=== PATIENT | female | born 1990 | race Caucasian/White ===

== ENCOUNTER 2024-07-31 22:58 | Emergency (ER) | payer OTHER ==
[2024-07-31 23:05] VITALS: RESP 18
[2024-08-01] MEDS: hydrOXYzine HCL 25 MG TAB PO STA (02:06)
--- NOTE | 2024-08-01 02:43 | ED ---
Anxiety HPI - General Chief Complaint: Anxiety Stated Complaint: Anxiety Time Seen by Provider: 08/01/24 00:32 Source: patient Mode of arrival: ambulatory - History of Present Illness Initial Comments: 34-year-old female presenting with chief complaint of anxiety. Patient has history of anxiety and believes that she is having a panic attack. This feels like previous panic attacks she has had. She states that she feels her heart beating very hard in her chest and is feeling overwhelmed. States that she is new to the area and is trying to find a primary care doctor and a psychiatrist. No abdominal pain, vomiting, fevers, dizziness, vision or hearing changes, numbness, tingling, weakness. - Related Data Home Medications: Previous Rx's Medication Instructions Recorded hydrOXYzine HCL [Atarax] 50 mg PO HS PRN #10 tablet 08/01/24 Allergies/Adverse Reactions: Allergies Allergy/AdvReac Type Severity Reaction Status Date / Time Penicillins Allergy Anaphylaxis Verified 07/31/24 23:06 shellfish derived [Shellfish] Allergy Anaphylaxis Verified 07/31/24 23:06 Sulfa (Sulfonamide Allergy Anaphylaxis Verified 07/31/24 23:06 Antibiotics) Review of Systems ROS Statement: Those systems with pertinent positive or pertinent negative responses have been documented in the HPI. ROS Other: All systems not noted in ROS Statement are negative. Past Medical History Past Medical History: No Reported History History of Any Multi-Drug Resistant Organisms: None Reported Past Surgical History: Orthopedic Surgery Additional Past Surgical History / Comment(s): carpal tunnel Past Psychological History: Anxiety, PTSD Smoking Status: Current every day smoker Past Alcohol Use History: Abuse Past Drug Use History: Marijuana General Exam General appearance: alert, anxious Head exam: Present: atraumatic, normocephalic, normal inspection Eye exam: Present: normal appearance, PERRL, EOMI Neck exam: Present: normal inspection. Absent: meningismus Respiratory exam: Present: normal lung sounds bilaterally. Absent: respiratory distress, wheezes, rales, rhonchi, stridor Cardiovascular Exam: Present: normal rhythm, tachycardia, normal heart sounds. Absent: systolic murmur, diastolic murmur, rubs, gallop, clicks Neurological exam: Present: alert, oriented X3 Psychiatric exam: Present: anxious Skin exam: Present: warm, dry, normal color Course Vital Signs 07/31/24 08/01/24 23:03 02:46 Temperature 98.4 F 98.3 F Pulse Rate 115 H 94 Respiratory 18 18 Rate Blood Pressure 127/73 114/85 O2 Sat by Pulse 100 99 Oximetry Medical Decision Making - Medical Decision Making Was pt. sent in by a medical professional or institution (, PAZ, INCOME TAX MANAGER, urgent care, hospital, or custodial...) When possible be specific @ -[No] Did you speak to anyone other than the patient for history (EMS, parent, family, police, friend...)? What history was obtained from this source @ -[No] Did you review nursing and triage notes (agree or disagree)? Why? @ -[I reviewed and agree with nursing and triage notes] Were old charts reviewed (outside hosp., previous admission, EMS record, old EKG, old radiological studies, urgent care reports/EKG's, custodial records)? Report findings @ -[No old charts were reviewed] Differential Diagnosis (chest pain, altered mental status, abdominal pain women, abdominal pain men, vaginal bleeding, weakness, fever, dyspnea, syncope, headache, dizziness, GI bleed, back pain, seizure, CVA, palpatations, mental health, musculoskeletal)? @ -Differential Mental Health Depression, anxiety, bipolar, psychosis, schizophrenia, borderline personality, situational depression, adjustment disorder, behavioral disorder, brain tumor, malingering, substance abuse, encephalopathy, medication reaction, dementia, hypothyroidism, degenerative neurologic disorder, lupus.... This is not meant to be all-inclusive list EKG interpreted by me (3pts min.). @ -[As above] X-rays interpreted by me (1pt min.). @ -[None done] CT interpreted by me (1pt min.). @ -[None done] U/S interpreted by me (1pt. min.). @ -[None done] What testing was considered but not performed or refused? (CT, X-rays, U/S, labs)? Why? @ -[None] What meds were considered but not given or refused? Why? @ -[None] Did you discuss the management of the patient with other professionals (professionals i.e. , PAZ, INCOME TAX MANAGER, lab, RT, psych nurse, 7th grade social studies teacher, process controller, teacher, tactical deception plans officer, case repairer)? Give summary @ -[No] Was smoking cessation discussed for >3mins.? @ -[No] Was critical care preformed (if so, how long)? @ -[No] Were there social determinants of health that impacted care today? How? (Homelessness, low income, unemployed, alcoholism, drug addiction, transportation, low edu. Level, literacy, decrease access to med. care, nursing home, rehab)? @ -[No] Was there de-escalation of care discussed even if they declined (Discuss DNR or withdrawal of care, Hospice)? DNR status @ -[No] What co-morbidities impacted this encounter? (DM, HTN, Smoking, COPD, CAD, Cancer, CVA, ARF, Chemo, Hep., AIDS, mental health diagnosis, sleep apnea, mor bid obesity)? @ -[None] Was patient admitted / discharged? Hospital course, mention meds given and route, prescriptions, significant lab abnormalities, going to OR and other pertinent info. @ -34-year-old female presenting with chief complaint of anxiety. Has history of anxiety and this feels like previous panic attacks. Patient is given hydroxyzine and on reassessment she reports significant improvement in her symptoms. She is requesting suggestions for PCP and psychiatrist. She is given contact information for [facility] and a few different PCPs in the area. Discharged. Follow-up with PCP. Report back to ER with any new or worsening symptoms. Discussed return parameters and answered all questions. Patient conveyed verbal understanding and agreed to the plan. I discussed this case in detail with my attending Dr. Taylor Undiagnosed new problem with uncertain prognosis? @ -[No] Drug Therapy requiring intensive monitoring for toxicity (Heparin, Nitro, Insulin, Cardizem)? @ -[No] Were any procedures done? @ -[No] Diagnosis/symptom? @ -Anxiety Acute, or Chronic, or Acute on Chronic? @ -Acute on chronic Uncomplicated (without systemic symptoms) or Complicated (systemic symptoms)? @ -Uncomplicated Side effects of treatment? @ -[No] Exacerbation, Progression, or Severe Exacerbation? @ -[No] Poses a threat to life or bodily function? How? (Chest pain, [place], [place], pneumonia, PE, COPD, DKA, ARF, appy, cholecystitis, CVA, Diverticulitis, Homicidal, Suicidal, threat to staff... and all critical care pts) @ -Unlikely Disposition Clinical Impression: Acute anxiety Disposition: HOME SELF-CARE Condition: Good Instructions (If sedation given, give patient instructions): Generalized Anxiety Disorder (ED) Additional Instructions: Follow-up with PCP and [facility]. Report back to ER with any new or worsening symptoms. Do not take hydroxyzine before driving or operating heavy machinery as it may cause drowsiness Prescriptions: hydrOXYzine HCL [Atarax] 50 mg PO HS PRN #10 tablet PRN Reason: Anxiety Is patient prescribed a controlled substance at d/c from ED?: No Referrals: None,Stated [Primary Care Provider] - 1-2 days [facility] [NON-STAFF] - 1-2 days Jerad Lorenzo MD [STAFF PHYSICIAN] - 1-2 days Terence Vaughan MD [STAFF PHYSICIAN] - 1-2 days Marshal Dacosta MD [STAFF PHYSICIAN] - 1-2 days Time of Disposition: 02:43
[2024-08-01 02:53] VITALS: BP 114/85; PULSE 94; TEMP 98.3
== END 2024-08-01 02:50 | disposition home or self-care (01) ==
LOC: EC 22:58
CPT/HCPCS: 99283

== ENCOUNTER 2024-09-11 21:30 | Emergency (ER) | payer OTHER ==
--- NOTE | 2024-09-11 22:20 | ED ---
Anxiety HPI - General Chief Complaint: Anxiety Stated Complaint: Anxiety Time Seen by Provider: 09/11/24 21:41 Source: police Mode of arrival: ambulatory Limitations: physical limitation (The patient is largely not cooperative with the history) - History of Present Illness Initial Comments: Patient is a 34-year-old woman brought here by police department to have psychiatric evaluation. The patient reportedly approached the police car and open the door and sat down in the vehicle. She told them she was having anxiety. When I interviewed the patient, she will only give few one-word answers. She states she is here because of "anxiety." She does not further elaborate on symptoms. She did state no to having suicidal and homicidal ideation at my interview. MD Complaint: anxiety Onset/Timin -: hour(s) Place: outdoors Previous History of Same: Yes - Related Data Home Medications: Previous Rx's Medication Instructions Recorded hydrOXYzine HCL [Atarax] 50 mg PO HS PRN #10 tablet 08/01/24 Allergies/Adverse Reactions: Allergies Allergy/AdvReac Type Severity Reaction Status Date / Time Penicillins Allergy Anaphylaxis Verified 09/11/24 21:38 shellfish derived [Shellfish] Allergy Anaphylaxis Verified 09/11/24 21:38 Sulfa (Sulfonamide Allergy Anaphylaxis Verified 09/11/24 21:38 Antibiotics) Review of Systems ROS Statement: Those systems with pertinent positive or pertinent negative responses have been documented in the HPI. ROS Other: All systems not noted in ROS Statement are negative. Limitations: ROS unobtainable due to patients medical condition Respiratory: Denies: dyspnea Cardiovascular: Denies: chest pain Psychiatric: Reports: anxiety. Denies: homicidal thoughts, suicidal thoughts Past Medical History Past Medical History: No Reported History History of Any Multi-Drug Resistant Organisms: None Reported Past Surgical History: Orthopedic Surgery Additional Past Surgical History / Comment(s): carpal tunnel Past Psychological History: Anxiety, PTSD Smoking Status: Current every day smoker Past Alcohol Use History: Abuse Past Drug Use History: Marijuana General Exam Limitations: no limitations General appearance: alert, in no apparent distress Head exam: Present: atraumatic, normocephalic Eye exam: Present: normal appearance, EOMI. Absent: scleral icterus, conjunctival injection, nystagmus Neck exam: Present: normal inspection Respiratory exam: Present: normal lung sounds bilaterally. Absent: respiratory distress, wheezes, rales, rhonchi, stridor, accessory muscle use Cardiovascular Exam: Present: normal rhythm, tachycardia (Rate 104 at my exam), normal heart sounds. Absent: systolic murmur, diastolic murmur, rubs, gallop GI/Abdominal exam: Present: soft. Absent: distended, tenderness Extremities exam: Present: normal inspection, normal capillary refill. Absent: pedal edema, calf tenderness Back exam: Present: normal inspection Neurological exam: Present: alert Psychiatric exam: Present: flat affect. Absent: agitated, anxious, manic, homicidal ideation, suicidal ideation Skin exam: Present: warm, dry, intact, normal color. Absent: rash Course Vital Signs 09/11/24 09/12/24 09/12/24 21:35 01:12 01:16 Temperature 98.2 F 98.1 F 98.1 F Pulse Rate 134 H 100 100 Respiratory 18 19 19 Rate Blood Pressure 142/71 110/74 110/74 O2 Sat by Pulse 96 99 99 Oximetry Medical Decision Making - Medical Decision Making Was pt. sent in by a medical professional or institution ( PA, MATCHBOOK ASSEMBLER, urgent care, hospital, or snf...) When possible be specific @ -[No] Did you speak to anyone other than the patient for history (EMS, parent, family, police, friend...)? What history was obtained from this source @ -[No] Did you review nursing and triage notes (agree or disagree)? Why? @ -[I reviewed and agree with nursing and triage notes] Were old charts reviewed (outside hosp., previous admission, EMS record, old EKG, old radiological studies, urgent care reports/EKG's, snf records)? Report findings @ -[No old charts were reviewed] Differential Diagnosis (chest pain, altered mental status, abdominal pain women, abdominal pain men, vaginal bleeding, weakness, fever, dyspnea, syncope, headache, dizziness, GI bleed, back pain, seizure, CVA, palpatations, mental health, musculoskeletal)? @ -[Differential Mental Health Depression, anxiety, bipolar, psychosis, schizophrenia, borderline personality, situational depression, adjustment disorder, behavioral disorder, brain tumor, malingering, substance abuse, encephalopathy, medication reaction, dementia, hypothyroidism, degenerative neurologic disorder, lupus.... This is not meant to be all-inclusive list EKG interpreted by me (3pts min.). @ -[As above] X-rays interpreted by me (1pt min.). @ -[None done] CT interpreted by me (1pt min.). @ -[None done] U/S interpreted by me (1pt. min.). @ -[None done] What testing was considered but not performed or refused? (CT, X-rays, U/S, labs)? Why? @ -[None] What meds were considered but not given or refused? Why? @ -[None] Did you discuss the management of the patient with other professionals (professionals i.e. , PA, MATCHBOOK ASSEMBLER, lab, RT, psych nurse, social welfare research worker, supervisory forester, teacher, special assets officer, caseworker protective services)? Give summary @ -Case discussed with EPS personnel who staffed the case with psychiatrist Was smoking cessation discussed for >3mins.? @ -[No] Was critical care preformed (if so, how long)? @ -[No] Were there social determinants of health that impacted care today? How? (Homelessness, low income, unemployed, alcoholism, drug addiction, transportation, low edu. Level, literacy, decrease access to med. care, assisted, rehab)? @ -[No] Was there de-escalation of care discussed even if they declined (Discuss DNR or withdrawal of care, Hospice)? DNR status @ -[No] What co-morbidities impacted this encounter? (DM, HTN, Smoking, COPD, CAD, Cancer, CVA, ARF, Chemo, Hep., AIDS, mental health diagnosis, sleep apnea, morbid obesity)? @ -[None] Was patient admitted / discharged? Hospital course, mention meds given and route, prescriptions, significant lab abnormalities, going to OR and other p ertinent info. @ -[Patient is seen by EPS and at this point felt stable to have further treatment as outpatient. They did establish safety plan Undiagnosed new problem with uncertain prognosis? @ -[No] Drug Therapy requiring intensive monitoring for toxicity (Heparin, Nitro, Insulin, Cardizem)? @ -[No] Were any procedures done? @ -[No] Diagnosis/symptom? @ -[Acute mood disorder Acute, or Chronic, or Acute on Chronic? @ -[Acute Uncomplicated (without systemic symptoms) or Complicated (systemic symptoms)? @ -[Uncomplicated Side effects of treatment? @ -[No] Exacerbation, Progression, or Severe Exacerbation? @ -[No] Poses a threat to life or bodily function? How? (Chest pain, [place], [place], pneumonia, PE, COPD, DKA, ARF, appy, cholecystitis, CVA, Diverticulitis, Homicidal, Suicidal, threat to staff... and all critical care pts) @ -[No] Disposition Clinical Impression: Mood disorder Disposition: HOME SELF-CARE Condition: Good Instructions (If sedation given, give patient instructions): Mood Disorders (ED) Is patient prescribed a controlled substance at d/c from ED?: No Referrals: None,Stated [Primary Care Provider] - 1-2 days
[2024-09-12 01:16] VITALS: BP 110/74; PULSE 100; RESP 19; TEMP 98.1
== END 2024-09-12 01:35 | disposition home or self-care (01) ==
LOC: EC 21:30
DX: F39 Unspecified mood [affective] disorder (principal); F17.200 Nicotine dependence, unspecified, uncomplicated; Z88.0 Allergy status to penicillin; Z88.2 Allergy status to sulfonamides; Z91.013 Allergy to seafood
CPT/HCPCS: 82075; 99283

== ENCOUNTER 2024-11-30 14:51 | Inpatient (IN) | payer MEDICARE, MEDICAID ==
--- NOTE | 2024-11-30 15:19 | ED ---
Psych HPI - General Source: patient, RN notes reviewed, old records reviewed Mode of arrival: ambulatory Limitations: no limitations <Priscila Traore - Last Filed: 11/30/24 16:57> - General Source: patient, RN notes reviewed, old records reviewed Mode of arrival: ambulatory Limitations: no limitations - History of Present Illness MD Complaint: other (Psychiatric petition) <Al Brennan - Last Filed: 11/30/24 17:39> - General Chief Complaint: Psychiatric Symptoms Stated Complaint: mental health Time Seen by Provider: 11/30/24 15:18 - History of Present Illness Initial Comments: Patient is a 34-year-old female escorted by police presented to the ER for evaluation of "anxiety". Patient reports she has anxiety and is not forthcoming with information. She denies any SI or HI. No drug or alcohol use besides nicotine. Patient denies any current pain. Patient is being petitioned by [facility] for mental health evaluation. (Priscila Traore) This is a 34-year-old female to ER for anxiety with no suicidal or homicidal ideation patient is here for psych evaluation by [facility] under petition (Al Brennan) - Related Data Previous Rx's Medication Instructions Recorded hydrOXYzine HCL [Atarax] 50 mg PO HS PRN #10 tablet 08/01/24 Allergies Allergy/AdvReac Type Severity Reaction Status Date / Time Iodinated Contrast Media Allergy Anaphylaxis Verified 11/30/24 15:08 Penicillins Allergy Anaphylaxis Verified 11/30/24 15:08 shellfish derived [Shellfish] Allergy Anaphylaxis Verified 11/30/24 15:08 Sulfa (Sulfonamide Allergy Anaphylaxis Verified 11/30/24 15:08 Antibiotics) Review of Systems ROS Other: All systems not noted in ROS Statement are negative. <Priscila Traore - Last Filed: 11/30/24 16:57> ROS Other: All systems not noted in ROS Statement are negative. <Al Brennan - Last Filed: 11/30/24 17:39> ROS Statement: Those systems with pertinent positive or pertinent negative responses have been documented in the HPI. Past Medical History Past Medical History: No Reported History History of Any Multi-Drug Resistant Organisms: None Reported Past Surgical History: Orthopedic Surgery Additional Past Surgical History / Comment(s): carpal tunnel Past Psychological History: Anxiety, PTSD Smoking Status: Current every day smoker Past Alcohol Use History: Abuse Past Drug Use History: Marijuana <Priscila Traore - Last Filed: 11/30/24 16:57> General Exam Limitations: no limitations General appearance: alert, in no apparent distress Respiratory exam: Present: normal lung sounds bilaterally. Absent: respiratory distress, wheezes, rales, rhonchi, stridor Cardiovascular Exam: Present: regular rate, normal rhythm, normal heart sounds. Absent: systolic murmur, diastolic murmur, rubs, gallop, clicks Neurological exam: Present: alert, oriented X3, CN II-XII intact Psychiatric exam: Present: anxious Skin exam: Present: warm, dry, intact, normal color. Absent: rash <Priscila Traore - Last Filed: 11/30/24 16:57> General appearance: alert, in no apparent distress Head exam: Present: atraumatic, normocephalic, normal inspection Eye exam: Present: normal appearance, PERRL, EOMI. Absent: scleral icterus, conjunctival injection, periorbital swelling ENT exam: Present: normal exam, mucous membranes moist Neck exam: Present: normal inspection. Absent: tenderness, meningismus, lymphadenopathy Respiratory exam: Present: normal lung sounds bilaterally. Absent: respiratory distress, wheezes, rales, rhonchi, stridor Cardiovascular Exam: Present: regular rate, normal rhythm, normal heart sounds. Absent: systolic murmur, diastolic murmur, rubs, gallop, clicks GI/Abdominal exam: Present: soft, normal bowel sounds. Absent: distended, tenderness, guarding, rebound, rigid Extremities exam: Present: normal inspection, full ROM, normal capillary refill. Absent: tenderness, pedal edema, joint swelling, calf tenderness Back exam: Present: normal inspection Neurological exam: Present: alert, oriented X3, CN II-XII intact Psychiatric exam: Present: normal affect, normal mood Skin exam: Present: warm, dry, intact, normal color. Absent: rash <Al Brennan - Last Filed: 11/30/24 17:39> Course <Al Brennan - Last Filed: 11/30/24 17:39> Vital Signs 11/30/24 15:05 Temperature 98.7 F Pulse Rate 88 Respiratory 17 Rate Blood Pressure 105/68 O2 Sat by Pulse 100 Oximetry - Reevaluation(s) Reevaluation #1: 11/30/24 17:38 Medical records reviewed Prior ER visits for anxiety (Al Brennan) Reevaluation #2: 11/30/24 17:38 Patient medically clear for psychiatric evaluation (Al Brennan) Reevaluation #3: 11/30/24 17:38 Patient is seen and admitted by psychiatry will admit for psych [facility] evaluation and treatment with certification physician to follow petition (Al Brennan) Reevaluation #4: 11/30/24 17:38 Patient informed of results questions answered (Al Brennan) Reevaluation #5: Differential Mental Health Depression, anxiety, bipolar, psychosis, schizophrenia, borderline personality, situational depression, adjustment disorder, behavioral disorder, brain tumor, malingering, substance abuse, encephalopathy, medication reaction, dementia, hypothyroidism, degenerative neurologic disorder, lupus.... This is not meant to be all-inclusive list (Al Brennan) Medical Decision Making <Priscila Traore - Last Filed: 11/30/24 16:57> <Al Brennan - Last Filed: 11/30/24 17:39> - Medical Decision Making Was pt. sent in by a medical professional or institution ([facility], [employer], urgent care, hospital, or alf...) When possible be specific @ -No Did you speak to anyone other than the patient for history (EMS, parent, family, police, friend...)? What history was obtained from this source @ -No Did you review nursing and triage notes (agree or disagree)? Why? @ -I reviewed and agree with nursing and triage notes Were old charts reviewed (outside hosp., previous admission, EMS record, old EKG, old radiological studies, urgent care reports/EKG's, alf records)? Report findings @ -No old charts were reviewed Differential Diagnosis (chest pain, altered mental status, abdominal pain women, abdominal pain men, vaginal bleeding, weakness, fever, dyspnea, syncope, headache, dizziness, GI bleed, back pain, seizure, CVA, palpatations, mental health, musculoskeletal)? @ -Differential Mental Health Depression, anxiety, bipolar, psychosis, schizophrenia, borderline personality, situational depression, adjustment disorder, behavioral disorder, brain tumor, malingering, substance abuse, encephalopathy, medication reaction, dementia, hypothyroidism, degenerative neurologic disorder, lupus.... This is not meant to be all-inclusive list EKG interpreted by me (3pts min.). @ -None done X-rays interpreted by me (1pt min.). @ -None done CT interpreted by me (1pt min.). @ -None done U/S interpreted by me (1pt. min.). @ -None done What testing was considered but not performed or refused? (CT, X-rays, U/S, labs)? Why? @ -None What meds were considered but not given or refused? Why? @ -None Did you discuss the management of the patient with other professionals (professionals i.e. , PA, [employer], lab, RT, psych nurse, psychologist social, furniture manager, teacher, staff readiness officer, sample case porter)? Give summary @ -No Was smoking cessation discussed for >3mins.? @ -No Was critical care preformed (if so, how long)? @ -No Were there social determinants of health that impacted care today? How? (Homelessness, low income, unemployed, alcoholism, drug addiction, transportation, low edu. Level, literacy, decrease access to med. care, skilled nursing, rehab)? @ -No Was there de-escalation of care discussed even if they declined (Discuss DNR or withdrawal of care, Hospice)? DNR status @ -No What co-morbidities impacted this encounter? (DM, HTN, Smoking, COPD, CAD, Cancer, CVA, ARF, Chemo, Hep., AIDS, mental health diagnosis, sleep apnea, morbid obesity)? @ -Mental health Was patient admitted / discharged? Hospital course, mention meds given and route, prescriptions, significant lab abnormalities, going to OR and other pertinent info. @ -34-year-old female escorted by police presented to ER for evaluation of anxiety. Patient has been petitioned by [facility]. Patient denying any current SI or HI. Patient medically cleared for EPS evaluation. Patient signed out to Dr. Brennan pending EPS evaluation and disposition at my shift completion. (Eugenie,Priscila) 34 female was seen eval by psychiatry here in the ER under petition, arrival for the cert for this patient for inpatient psychiatric treatment evaluation (Al Brennan) - Lab Data Lab Results 11/30/24 11/30/24 Range/Units 16:14 16:14 Urine HCG, Qual Not Detected (Not Detectd) Urine Opiates Screen Not Detected (NotDetected) Ur Oxycodone Screen Not Detected (NotDetected) Urine Methadone Screen Not Detected (NotDetected) Ur Barbiturates Screen Not Detected (NotDetected) U Tricyclic Antidepress Not Detected (NotDetected) Ur Phencyclidine Scrn Not Detected (NotDetected) Ur Amphetamines Screen Not Detected (NotDetected) U Methamphetamines Scrn Not Detected (NotDetected) U Benzodiazepines Scrn Not Detected (NotDetected) Urine Cocaine Screen Not Detected (NotDetected) U Marijuana (THC) Screen Detected H (NotDetected) Disposition <Priscila Traore - Last Filed: 11/30/24 16:57> Is patient prescribed a controlled substance at d/c from ED?: No <Al Brennan - Last Filed: 11/30/24 17:39> Clinical Impression: Psychosis, Mood disorder Disposition: TRANSFER TO PSYCH HOSP/UNIT Condition: Fair Referrals: None,Stated [Primary Care Provider] - 1-2 days
[2024-11-30 16:35] LABS: Amphetamine Screen,Urine Not Detected (NotDetected); Barbiturate Screen,Urine Not Detected (NotDetected); Benzodiazepines Screen,Urine Not Detected (NotDetected); Cocaine Screen,Urine Not Detected (NotDetected); Methadone Screen, Urine Not Detected (NotDetected); Opiate Screen,Urine Not Detected (NotDetected); Oxycodone Screen, Urine Not Detected (NotDetected); Phencyclidine Screen,Urine Not Detected (NotDetected); Tricyclic Antidepressant,Urine Not Detected (NotDetected); Urn Cannabinoid Scrn Detected (NotDetected)
[2024-11-30 19:59] LABS: Influenza A Not Detected (Not Detectd); Influenza B Not Detected (Not Detectd); RSV Not Detected (Not Detectd)
[2024-11-30] MEDS ORDERED: IBUPROFEN 600 MG TAB PO PRN (20:25)
[2024-11-30] MEDS ORDERED: MAG HYDROX/AL HYDROX/SIMETH 355 ML BOTTLE PO PRN (20:25)
[2024-11-30] MEDS ORDERED: haloperidoL 5 MG TAB PO PRN (20:25)
[2024-11-30] MEDS ORDERED: MAGNESIUM HYDROXIDE 2,400 MG/30 ML CUP PO PRN (20:25)
[2024-11-30] MEDS ORDERED: HALOPERIDOL LACTATE 5 MG/ML 1 ML VIAL IM PRN (20:25)
[2024-11-30] MEDS ORDERED: ACETAMINOPHEN TAB 325 MG TAB PO PRN (20:25)
[2024-11-30] MEDS ORDERED: LORazepam 2 MG/ML INJ IM PRN (20:25)
[2024-11-30] MEDS: LORazepam 1 MG TAB PO PRN (21:13)
[2024-11-30] MEDS: NICOTINE GUM (POLACRILEX) 2 MG GUM BUCCAL PRN (23:39)
[2024-12-01] MEDS: NICOTINE 14MG/24HR PATCH TRANSDERM SCH (07:03)
[2024-12-01 09:51] LABS: Basophils % (A) 0 %; Eosinophils # (A) 0.1 k/uL (0-0.7); Eosinophils % (A) 1 %; HCT 44.8 % (34.0-46.0); Hypochromasia Slight; Lymphocytes # (A) 1.7 k/uL (1.0-4.8); Lymphocytes % (A) 13 %; MCH 29.2 pg (25.0-35.0); MCHC 31.4 g/dL (31.0-37.0); MCV 93.1 fL (80.0-100.0); Monocytes # (A) 0.4 k/uL (0-1.0); Monocytes % (A) 3 %; Neutrophils # (A) 10.3 k/uL (1.3-7.7); Neutrophils % (A) 81 %; Platelet Count 406 k/uL (150-450); RBC 4.81 m/uL (3.80-5.40); RDW 14.6 % (11.5-15.5); WBC 12.7 k/uL (3.8-10.6)
[2024-12-01 10:05] LABS: ALT 15 U/L (4-34); AST 21 U/L (14-36); African American GFR (CKD) >90 (>60 ml/min/1.73 sqM); Albumin 4.2 g/dL (3.5-5.0); Alkaline Phosphatase 77 U/L (38-126); Anion Gap 6 mmol/L; Bilirubin, Delta 0.2 mg/dL (0.0-0.2); Bilirubin,Unconjugated 0.4 mg/dL (0.0-1.1); Blood Urea Nitrogen 6 mg/dL (7-17); Calcium 9.4 mg/dL (8.4-10.2); Carbon Dioxide 29 mmol/L (22-30); Chloride 102 mmol/L (98-107); Glucose 94 mg/dL (74-99); Non-African American GFR(CKD) 90 (>60 ml/min/1.73 sqM); Potassium 4.8 mmol/L (3.5-5.1); Sodium 137 mmol/L (137-145); Total Bilirubin 0.6 mg/dL (0.2-1.3); Total Protein 6.8 g/dL (6.3-8.2)
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
[2024-12-01 15:26] LABS: Chol/HDL Ratio 3.01 Ratio; LDL Cholesterol,Calculated 74.6 mg/dL (0.0-131.0); VLDL Calculation 15.56 mg/dL (5.00-40.00)
[2024-12-01] MEDS: QUEtiapine 50 MG TAB PO SCH (20:04)
[2024-12-02 07:16] VITALS: RESP 16
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
[2024-12-02] MEDS: risperiDONE 1 MG TAB PO SCH (20:17)
--- NOTE | 2024-12-03 04:37 | P.MDCNMH ---
History of Present Illness H&P Date: 12/02/24 Patient is a 34-year-old female with no known past medical history admitted for mental health evaluation. She denies fever/chills, nausea/vomiting, chest pain, dyspnea, abdominal pain, hematuria, hematochezia/melena. Patient has no significant complaints at this time. Vitals: BP 102/69, IA 79 bpm, 97% on room air, 97.7 F Significant labs labs: WBC 12.7 Review of systems: Pertinent positives and negatives as discussed in HPI, a complete review of systems was performed and all other systems are negative. Social history: Tobacco: Daily Alcohol: None reported Recreational drugs: Marijuana Travel: None reported Sick contacts: None reported Physical examination: Vital signs reviewed General: Nontoxic, no distress, appears stated age, well-appearing Derm: Warm, dry, intact, no cyanosis Head: Atraumatic, normocephalic, symmetric Eyes: EOMI, anicteric sclera, PERRL Ears: Normal appearing, no external lesions, hearing intact Nose: Normal appearing, no external lesions Mouth: No lip lesion, mucus membranes moist, no tonsilar hypertrophy or exudate Neck: Supple, without lesions, trachea midline Cardiovascular: S1-S2 regular, no murmur, no pedal edema Lungs: CTA bilateral, no wheezes, no rhonchi, no rales, no accessory muscle use Abdominal: Soft, non-tender to palpation, bowel sounds present; mild LLQ tenderness Extremities: Muscle strength 5/5 in all extremities, radial pulses 2+ bilateral, posterior tibial pulses 2+ bilateral Neuro: Alert, oriented x 4, gross neurological examination did not reveal any focal deficits. Cranial nerves II to XII grossly intact. Psych: Appropriate affect and mood Assessment and Plan: Patient is a 34-year-old female with no known past medical history admitted for acute psychosis. Active #. Leukocytosis, likely reactive Afebrile; no signs/symptoms or suspected source of infection Monitor CBC in the morning #. Nicotine dependence Nicotine 14 mg transdermal patch daily #. Acute psychosis Management per psychiatry CODE STATUS: Full Code Past Medical History Past Medical History: No Reported History History of Any Multi-Drug Resistant Organisms: None Reported Past Surgical History: Orthopedic Surgery Additional Past Surgical History / Comment(s): carpal tunnel Past Psychological History: Anxiety, PTSD Smoking Status: Current every day smoker Past Alcohol Use History: Abuse Past Drug Use History: Marijuana Medications and Allergies Home Medications Medication Instructions Recorded Confirmed Type No Known Home Medications 11/30/24 11/30/24 History Allergies Allergy/AdvReac Type Severity Reaction Status Date / Time Iodinated Contrast Media Allergy Anaphylaxis Verified 11/30/24 18:32 Penicillins Allergy Anaphylaxis Verified 11/30/24 18:32 shellfish derived [Shellfish] Allergy Anaphylaxis Verified 11/30/24 18:32 Sulfa (Sulfonamide Allergy Anaphylaxis Verified 11/30/24 18:32 Antibiotics) Physical Exam Vitals: Vital Signs Temp Pulse Resp BP Pulse Ox 12/02/24 07:02 97.7 F 79 16 102/69 97 Cranial Nerve Examination - Cranial Nerves Cranial Nerve II- Optic: Intact Cranial Nerve III- Oculomotor: Intact Cranial Nerve IV- Trochlear: Intact Cranial Nerve V- Trigeminal: Intact Cranial Nerve - Abducens: Intact Cranial Nerve VII- Facial: Intact Cranial Nerve VIII- Auditory: Intact Cranial Nerve IX- Glossopharyngeal: Intact Cranial Nerve X- Vagus: Intact Cranial Nerve XI- Accessory: Intact Cranial Nerve XII- Hypoglossal: Intact Results CBC & Chem 7: 12/01/24 09:20 12/01/24 09:20
--- NOTE | 2024-12-03 11:56 | P.PN ---
Progress Note - Text Progress Note Date: 12/03/24 Interval History: Patient was seen wandering the hallways and was directable and agreeable to sp stephanie with scenario writer in the office. Patient notably was less paranoid, expressing less delusional thoughts today. She was labile, intermittently tearful, expressed that she missed her in addition to her family as they are all living on the [facility]. She reports sleeping well and is tolerating the Risperdal better than Seroquel with no adverse effects. She did appear to be responding internally at one point, some self talk noted. Patient expressed concerns with staying on these medications long-term given her desire to become however psychoeducation was provided on the potential risks in addition to the potential benefits of staying on this medication in addition to her speaking to her outpatient provider whenever she is ready to conceive. At this time patient denies any suicidal or homicidal ideations, intent or plan. Patient denies any visual hallucinations and denies any paranoia or delusions. Patient denies any side effects from the medications and has been compliant with meds. Mental Status Exam: General Appearance: Patient appears to be stated age is alert, directable, and cooperative. Grooming and hygiene Behavior: Patient is calmly seated without any agitated behavior. Less tearful today Speech: Patient's speech is fluent and nonpressured. Mood/Affect: Mood is improving mildly, affect is congruent and labile. Suicidality/Homicidality: Patient denies having any suicidal or homicidal ideation intent or plan. Perceptions: Patient denies any visual hallucinations and denies any auditory hallucinations however she did appear to be responding internally once Though content/process: Paranoid delusions are lessening, less fixation than previous encounters Memory and concentration: AOX3, grossly intact for the purposes of this session Judgment and insight: Improving mildly Assessment Psychosis, unspecified Rule out schizophrenia versus schizoaffective disorder Nicotine dependence Cannabis use disorder Plan: -Patient continues to meet criteria for inpatient psychiatric admission for symptom stabilization and safety. Patient has not signed adult voluntary form and medication consent and was placed in patient's chart. -Medications: Increase Risperdal to 2 mg at bedtime for psychosis -When necessary Ativan and Haldol for agitation/aggression. -Labs: Reviewed -NRT -nicotine patch/gum as needed -SW on board for discharge planning. Encouraged the patient to participate in milieu. Currently awaiting deferral with immigration attorney and court date. Anticipate discharge back home with on Sunday
[2024-12-03] MEDS: risperiDONE 2 MG TAB PO SCH (20:02)
[2024-12-04 06:46] VITALS: BP 108/72; PULSE 124; TEMP 97.7
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
== END 2024-12-04 11:27 | disposition home or self-care (01) | DRG 885 ==
LOC: EC 14:51 → 3MHU 20:22
PROVIDERS: ADMIT Psychiatry & Neurology Psychiatry; ATTEND Psychiatry & Neurology Psychiatry
DX: F23 Brief psychotic disorder (principal); D72.829 Elevated white blood cell count, unspecified; F12.10 Cannabis abuse, uncomplicated; G47.9 Sleep disorder, unspecified; F17.200 Nicotine dependence, unspecified, uncomplicated; F41.9 Anxiety disorder, unspecified; F90.9 Attention-deficit hyperactivity disorder, unspecified type; F43.10 Post-traumatic stress disorder, unspecified; Z56.0 Unemployment, unspecified; Z59.86 Financial insecurity; Z79.899 Other long term (current) drug therapy; Z91.51 Personal history of suicidal behavior; Z11.52 Encounter for screening for COVID-19; Z88.0 Allergy status to penicillin; Z88.2 Allergy status to sulfonamides; Z91.041 Radiographic dye allergy status; Z71.51 Drug abuse counseling and surveillance of drug abuser; Z71.89 Other specified counseling
CPT/HCPCS: 80053; 80061; 80306; 81025; 82248; 83036; 84443; 85025; 87636; 99285